=== PATIENT | male | born 1990 | race Caucasian/White ===

== ENCOUNTER → 2018-07-17 | Emergency (ER) | payer OTHER ==
--- NOTE | 2018-07-17 11:34 | EDPHY ---
H & P Time Seen by Provider: 07/17/18 11:21 HPI/ROS: Chief complaint: Laceration to right 3rd digit HPI: This is a 20-year-old male, right handed who sustained an injury when working with 1 of the clients. Evidently had a clean set of scissors that had not been used outdoors. Inadvertently, the very distal pad of the right 3rd digit was nipped with the scissor tips and a small 1 cm area of tissue was excised. He complains of a stinging discomfort that he feels he can tolerate. No other injury. 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 Well-nourished. No odor of alcohol. Nontoxic. Afebrile. Extremity: There is a 1 cm cm, linear elliptical defect/ laceration that is split thickness, keeping by 4 mm to the pad of the right 3rd finger. Function: Without signs of tendon dysfunction NV Status: Intact CMS: Intact Constitutional: Initial Vital Signs Temperature (C) 36.6 C 07/17/18 11:15 Heart Rate 67 07/17/18 11:15 Respiratory Rate 16 07/17/18 11:15 Blood Pressure 138/101 H 07/17/18 11:15 O2 Sat (%) 96 07/17/18 11:15 O2 Delivery Mode Room Air Allergies/Adverse Reactions: No Known Allergies Allergy (Verified 07/17/18 11:15) Home Medications: Medication Instructions Recorded NK [No Known Home Meds] 07/17/18 Medical Decision Making ED Course/Re-evaluation: This wound pucker is a significantly when trying to push closed as there is a missing piece of tissue. Thereby as a discontinue well upon bleeding moves, some Surgicel will be in order is so as to stop the flow blood and allowed to heal. We have reviewed the management of this wound at home extensively. Differential Diagnosis: Diagnostic considerations include, but are not limited to, the following: Laceration, retained FB, tendon disruption. Departure - Departure Disposition: Home, Routine, Self-Care Clinical Impression: Laceration Avulsion of skin of finger Qualifiers: Encounter type: initial encounter Qualified Code(s): S61.209A - Unspecified open wound of unspecified finger without damage to nail, initial encounter Condition: Good Instructions: Finger Laceration (ED) Additional Instructions: Worker's Comp follow-up: Per you're insurance provider, arranged for follow-up regarding this [wound] [ injury] at the next 4-7 days. Keep the wound clean and dry. In 48 hours, gently remove the outer dressing. At that point you should again put another dressing on the wound. Somewhere along the line in the next 5-7 days a simple Band-Aid would suffice. The dressing against the wound will probably fall off in approximately 8-10 days. Referrals: NONE *PRIMARY CARE P,. [Primary Care Provider] - As per Instructions
[2018-07-17 12:12] VITALS: BP 153/98
== END | disposition home or self-care (01) ==
LOC: CED 11:12
DX: S61.212A Laceration without foreign body of right middle finger without damage to nail, initial encounter (principal); W26.8XXA Contact with other sharp object(s), not elsewhere classified, initial encounter; Y99.0 Civilian activity done for income or pay